=== PATIENT | male | born 1995 | race Caucasian/White ===

== ENCOUNTER 2020-12-15 12:56 | Emergency (ER) | payer OTHER ==
[2020-12-15 13:10] VITALS: BP 129/81; PULSE 70; O2SAT 98
--- NOTE | 2020-12-15 13:48 | ERPHSYRPT ---
- History of Present Illness Time Seen by Provider: 12/15/20 13:20 Source: patient Exam Limitations: no limitations Patient Subjective Stated Complaint: Pt states "I was drywalling and I cut my finger with the blade." Triage Nursing Assessment: Pt presented alert and oriented X 3,skin pwd.Pt ambulates with an upright steady gait, able to sepak in clear full sentences pt has approx 2.5 cm x 0.25 cm laceration noted to left index finger. Physician History: Patient is a 25-year-old male presents to our ED with laceration to his left index finger. Patient was working on drywall using a dust box tender. The dust box tender slipped lacerating the lateral aspect of patient's left index finger. The laceration is just distal to the knuckle. Injury occurred just prior to arrival. Tetanus up-to-date. No other injuries reported. Patient otherwise healthy. Patient describes pain as a ache that is localized. No radiation. Palpation worsens symptoms. No bony tenderness. Patient is otherwise healthy. He voices no other complaints or concerns at this time. Timing/Duration: today Severity: moderate Modifying Factors: Improves With: movement Associated Symptoms: denies symptoms Allergies/Adverse Reactions: No Known Drug Allergies Allergy (Verified 12/15/20 13:10) Hx Tetanus, Diphtheria Vaccination/Date Given: Yes Hx Influenza Vaccination/Date Given: No Hx Pneumococcal Vaccination/Date Given: No Immunizations Up to Date: Yes Travel Risk - International Travel Have you traveled outside of the country in past 3 weeks: No - Coronavirus Screening Are you exhibiting any of the following symptoms?: No Close contact with a COVID-19 positive Pt in past 14-21 Days: No - Vaccine Status Have you recieved a Covid-19 vaccination: No - Review of Systems Constitutional: No Symptoms, No Fever, No Chills Eyes: No Symptoms Ears, Nose, & Throat: No Symptoms Respiratory: No Symptoms, No Cough, No Dyspnea Cardiac: No Symptoms, No Chest Pain, No Edema, No Syncope Abdominal/Gastrointestinal: No Symptoms, No Abdominal Pain, No Nausea, No Vomiting, No Diarrhea Genitourinary Symptoms: No Symptoms, No Dysuria Musculoskeletal: No Symptoms, No Back Pain, No Neck Pain Skin: No Symptoms, No Rash Neurological: No Symptoms, No Dizziness, No Focal Weakness, No Sensory Changes Psychological: No Symptoms Endocrine: No Symptoms Hematologic/Lymphatic: No Symptoms Immunological/Allergic: No Symptoms All Other Systems: Reviewed and Negative - Past Medical History Pertinent Past Medical History: No - Past Surgical History Past Surgical History: Yes Other Surgical History: left lower arm - Social History Smoking Status: Never smoker Exposure to second hand smoke: No Drug Use: none Patient Lives Alone: No - Nursing Vital Signs Nursing Vital Signs: Initial Vital Signs Temperature 98.5 F 12/15/20 13:05 Pulse Rate 70 12/15/20 13:05 Respiratory Rate 20 12/15/20 13:05 Blood Pressure 129/81 12/15/20 13:05 O2 Sat by Pulse Oximetry 98 12/15/20 13:05 Pain Scale Pain Intensity 1 - Physical Exam General Appearance: no apparent distress, alert Eye Exam: PERRL/EOMI, eyes nml inspection Ears, Nose, Throat Exam: normal ENT inspection, TMs normal, pharynx normal, moist mucous membranes Neck Exam: normal inspection, non-tender, supple, full range of motion Respiratory Exam: normal breath sounds, lungs clear, airway intact, No respiratory distress Cardiovascular Exam: regular rate/rhythm, normal heart sounds, normal peripheral pulses Gastrointestinal/Abdomen Exam: soft, normal bowel sounds, No tenderness, No mass Back Exam: normal inspection, normal range of motion, No CVA tenderness, No vertebral tenderness Extremity Exam: normal inspection, normal range of motion, pelvis stable, other (2.5 cm laceration to the proximal lateral aspect of the left index finger. No tenderness involvement. The wound edges are about 0.25 cm apart. Sensation to light touch intact. Cap refill less than 2 seconds. Compartments are soft.) Neurologic Exam: alert, oriented x 3, cooperative, normal mood/affect, sensation nml, No motor deficits Skin Exam: normal color, warm, dry, No rash Lymphatic Exam: No adenopathy SpO2 Interpretation: normal SpO2: 98 O2 Delivery: Room Air Procedures - Laceration/Wound Repair Left Finger Time of Procedure: 13:45 Wound Location: Left (Proximal and lateral aspect of left index finger.) Wound Length (cm): 2.5 Wound's Depth, Shape: linear Wound Explored: clean Irrigated: Yes Hibiclens Prep: Yes Anesthesia: local, 1% Lidocaine Volume Anesthetic (ccs): 4 Wound Debrided: No debridement indicated Wound Repaired With: sutures Suture Size/Type: 5-0, nylon Number of Sutures: 8 Layer Closure?: No Sterile Dressing Applied?: Yes Splint Applied?: Yes Sling Applied?: No Progress: Patient reassessed post procedure. There were no complications during the procedure or after the procedure. Patient neurovascular intact post procedure. Patient tolerated procedure well he voiced no complaints 12/15/20 13:47 - Course Nursing assessment & vital signs reviewed: Yes - Progress Progress: improved Progress Note: 25-year-old male status post laceration to left index finger. Laceration was repaired using 8 simple interrupted sutures using 5-0 nylon. Patient tolerated procedure well. Patient neurovascular intact post procedure. The wound was dressed using bacitracin and sterile dressing. A splint was applied to the involved digit. A prescription for Keflex was forwarded to patient's pharmacy. Patient may have sutures removed in 1 week. Plan of care discussed with patient. He agrees to follow-up with primary care doctor within 48 hours for reevaluation. He voices no other complaints or concerns. No indication for imaging study. Portions of this note were created with voice recognition technology. There may be grammatical, spelling, punctuation or sound alike errors 12/15/20 13:51 12/15/20 13:52 Counseled pt/family regarding: diagnosis, need for follow-up - Departure Departure Disposition: Home Clinical Impression: Laceration Condition: Stable Critical Care Time: No Instructions: Laceration Repair With Stitches (DC) Additional Instructions: Discharge/Care Plan CIRA JOHNSON was seen on 12/15/20 in the Emergency Room. The patient was counseled regarding Diagnosis,Lab results, Imaging studies, need for follow up and when to return to the Emergency Room. Prescriptions given: Discharge Note I have spoken with the patient and/or caregivers. I have explained the patient's condition, diagnosis and treatment plan based on the information available to me at this time. I have answered the patient's and/or caregiver's questions and addressed any concerns. The patient and/or caregivers have as good understanding of the patient's diagnosis, condition and treatment plan as can be expected at this point. The vital signs have been stable. The patient's condition is stable and appropriate for discharge from the emergency department. The patient will pursue further outpatient evaluation with the primary care physician or other designated or consulting physician as outlined in the discharge instructions. The patient and/or caregivers are agreeable to this plan of care and follow-up instructions have been explained in detail. The patient and/or caregivers have received these instruction. The patient/and or caregivers are aware that any significant change in condition or worsening of symptoms should prompt an immediate return to this or the closest emergency department or call 911. Prescriptions: Cephalexin Mh 500 mg [Keflex 500 mg] 500 mg PO TID 7 Days #21 cap
[2020-12-15] MEDS ORDERED: BACIGUENT PACKET ONE (13:49)
== END 2020-12-15 14:02 | disposition home or self-care (01) ==
LOC: ED 12:56
DX: S61.211A Laceration without foreign body of left index finger without damage to nail, initial encounter (principal); W26.8XXA Contact with other sharp object(s), not elsewhere classified, initial encounter; Y93.89 Activity, other specified; Y92.89 Other specified places as the place of occurrence of the external cause
CPT/HCPCS: 12001; 99283; A9270-GY